=== PATIENT | female | born 1970 | race Hispanic/Latino ===

== ENCOUNTER 2018-04-05 12:37 | Emergency (ER) | payer OTHER ==
[2018-04-05 12:37] VITALS: BMI 18.8
[2018-04-05 13:04] VITALS: RESP 18; TEMP 98; O2SAT 98
--- NOTE | 2018-04-05 13:20 | ED PDOC ---
Arrival/HPI - General Chief Complaint: Eye Problem Time Seen by Provider: 04/05/18 13:05 Historian: Patient - History of Present Illness Narrative History of Present Illness (Text): 04/05/18 13:20 A 47 year old female, a current smoker, whose past medical history includes hypohydrosis, presents to the emergency department sent in by the game technician for a mildly dilated right pupil. Patient states on Saturday she noticed one p upil was more dilated than the other and went to her game technician who stated the symptom was not caused by her current medication, glycopyrrolate for her hypohydrosis. The patient's game technician urged her to go to the ER to be seen by a neuro manager lean. Patient reports no current eye pain and denies taking any eye drops. IOP 17, 18 done at game technician office. Patient denies any photophobia, eye pain, or any other complaints. Interline Clerk: Dr. Eldridge, PMD: Qi Palumbo Time/Duration: Other (4 days) Symptom Onset: Gradual Symptom Course: Unchanged Activities at Onset: Light Context: Other (Interline Clerk office) Past Medical History - Provider Review Nursing Documentation Reviewed: Yes - Past History Past History: No Previous - Infectious Disease Hx of Infectious Diseases: None - Tetanus Immunization Tetanus Immunization: Unknown - Reproductive Menopause: Yes Currently : No - Integumentary Other/Comment: Hypohydrosis - Psychiatric Hx Depression: No Hx Emotional Abuse: No Hx Physical Abuse: No Hx Substance Use: No - Suicidal Assessment Feels Threatened In Home Enviroment: No Family/Social History - Physician Review Nursing Documentation Reviewed: Yes Family/Social History: No Known Family HX Smoking Status: Current Some Days Smoker Hx Alcohol Use: Yes Frequency of alcohol use: Socially Hx Substance Use: No Hx Substance Use Treatment: No Allergies/Home Meds Allergies/Adverse Reactions: Allergies No Known Allergies Allergy (Verified 04/05/18 13:05) Home Medications: Home Meds Medication Instructions Recorded Confirmed Glycopyrrolate 2 mg PO DAILY 04/05/18 04/05/18 Review of Systems - Physician Review All systems were reviewed & negative as marked: Yes - Review of Systems Eyes: Vision Changes (blurry vision), Other (Right pupil is dilated). absent: Photophobia, Eye Pain Physical Exam Vital Signs Reviewed: Yes Vital Signs Temp Pulse Resp BP Pulse Ox 04/05/18 13:00 98 F 87 18 117/80 98 Temperature: Afebrile Blood Pressure: Normal Pulse: Regular Respiratory Rate: Normal Appearance: Positive for: Well-Appearing, Non-Toxic Pain Distress: None Mental Status: Positive for: Alert and Oriented X 3 - Systems Exam Head: Present: Atraumatic, Normocephalic Pupils: Present: Other (right sided dilated pupil; vision mildly decreased in right eye) Extroacular Muscles: Present: EOMI Conjunctiva: Present: Normal Respiratory/Chest: Present: Clear to Auscultation, Good Air Exchange. No: Respiratory Distress, Accessory Muscle Use Cardiovascular: Present: Regular Rate and Rhythm, Normal S1, S2. No: Murmurs Upper Extremity: Present: Normal Inspection. No: Cyanosis, Edema Lower Extremity: Present: Normal Inspection. No: Edema Neurological: Present: GCS=15, CN II-XII Intact, Speech Normal Skin: Present: Warm, Dry, Normal Color. No: Rashes Psychiatric: Present: Alert, Oriented x 3, Normal Insight, Normal Concentration Medical Decision Making ED Course and Treatment: 04/05/18 13:25 Impression: 47 year old female presenting to the emergency room sent in by the game technician for a mildly dilated right pupil. IOP 17, 18 done at game technician office. No eye pain. Mild R eye bluryness but can still read. No eye trauma or eye pain. No ptosis. R eye non reactive, but no cloudy cornea. EOMI fully inta ct. R eye is not down and out. No meningeal signs. Sent in by optometry for further evaluation. Plan: -- CTA Head & Neck -- Head CT -- CMP -- Magnesium -- CBC -- IV fluids -- urine test -- Reassess and disposition Prior Visits: Notes and results from previous visits were reviewed. Progress Notes: 04/05/18 13:[address] Dey (NEURO) who recommended a CTA, if negative patient can go home. 04/05/18 13:39 Appreciate consult w/ Dr. Seymour (opthamology) who reccomends CTA, if negative followup next week in his office. Pt in NAD, agreeable to plan. 04/05/18 15:47 labs unremarkable. CTH unremarkable Pending CTA. 02/09/19 16:42 CTA Unremarkable no change or worsening in vision. Normal neuro exam besides pupil clear for d/c home with optho and neuro. Pt agreeable to plan. - RAD Interpretation Narrative RAD Interpretations (Text): 04/05/18 15:44 Procedure: Head CT Dictator: Juan Jose Leos MD Impression: Normal CT of the head 04/05/18 16:50 Procedure: CTA of Head and Neck Dictator: Juan Jose Leos MD Impression: Unremarkable CT of Angiography of the brain. Air Cargo Agent: Radiologist - Scribe Statement The provider has reviewed the documentation as recorded by the Scribe Melissa Owens All medical record entries made by the Scribe were at my direction and personally dictated by me. I have reviewed the chart and agree that the record accurately reflects my personal performance of the history, physical exam, medical decision making, and the department course for this patient. I have also personally directed, reviewed, and agree with the discharge instructions and disposition. Disposition/Present on Arrival - Present on Arrival Any Indicators Present on Arrival: No History of DVT/PE: No History of Uncontrolled Diabetes: No Urinary Catheter: No History of Decub. Ulcer: No History Surgical Site Infection Following: None - Disposition Have Diagnosis and Disposition been Completed?: Yes Diagnosis: Pupillary abnormality of right eye, Blurry vision, right eye Disposition: HOME/ ROUTINE Disposition Time: 16:43 Condition: GOOD Discharge Instructions (ExitCare): How to Care for Your Eyes Additional Instructions: CALL DR. HOUSE OFFICE TO SET UP AN APPOINTMENT THIS WEEK. RETURN IF ANY NEW OR WORSENING SYMPTOMS CONSUELO MCINTOSH, thank you for letting us take care of you today. Your provider was Nikolas Oswald and you were treated for EYE PROBLEM. The emergency medical care you received today was directed at your acute symptoms. If you were prescribed any medication, please fill it and take as directed. It may take several days for your symptoms to resolve. Return to the Emergency Department if your symptoms worsen, do not improve, or if you have any other problems. Please contact your doctor or call one of the physicians/clinics you have been referred to that are listed on the Patient Visit Information form that is included in your discharge packet. Bring any paperwork you were given at discharge with you along with any medications you are taking to your follow up visit. Our treatment cannot replace ongoing medical care by a primary care provider outside of the emergency department. Thank you for allowing the [facility] team to be part of your care today. If you had an X-Ray or CT scan: A Radiologist will review the ED reading if any change in treatment is needed we will contact you. If you had a blood, urine, or wound culture: It will take several days for the results, if any change in treatment is needed we will contact you. If you had an STI test: It will take 48 hours for the results. Please call after 1 week if you have not heard back. Referrals: Qi Andrews MD [Primary Care Provider] - Follow up with primary Oni Dey MD [Staff Provider] - Follow up with primary Guido Seymour [Staff Provider] - Follow up with primary Forms: [employer] (Malay)
[2018-04-05] MEDS ORDERED: Sodium Chloride 0.9% 1,000 ML IV SCH (13:30)
[2018-04-05 13:46] LABS: BASO # 0.01 K/mm3 (0.0-2.0); BASO % 0.1 % (0.0-3.0); EOS # 0.1 (0.0-0.7); EOS % 0.4 % (1.5-5.0); HEMOGLOBIN 13.9 g/dL (12.0-16.0); LYMPH # 2.1 (1.2-3.4); LYMPH % 17.2 % (22.0-35.0); MEAN CELL VOLUME 91.6 fl (80.0-105.0); MEAN CORPUSCULAR HEMOGLOBIN 30.9 pg (25.0-35.0); MEAN CORPUSCULAR HGB CONC 33.7 g/dl (31.0-37.0); MONO # 0.5 (0.1-0.6); MONO % 4.1 % (1.0-6.0); RBC 4.5 10^6/uL (3.5-6.1); RED CELL DISTRIBUTION WIDTH 13.7 % (11.5-14.5); WHITE BLOOD COUNT 12.3 10^3/uL (4.5-11.0)
[2018-04-05 13:56] LABS: ALB/GLOB RATIO 1.4 (1.1-1.8); ALBUMIN 4.6 g/dL (3.0-4.8); ALT/SGPT 11 U/L (7-56); AST/SGOT 31 U/L (14-36); BLOOD UREA NITROGEN 13 mg/dL (7-21); CALCIUM 9.9 mg/dL (8.4-10.5); GFR NON-AFRICAN AMERICAN > 60
[2018-04-05] MEDS ORDERED: Iohexol 350 MG/100 ML VIAL ONE (15:24)
--- NOTE | 2018-04-05 15:42 | CT ---
Date of service: 04/05/2018 PROCEDURE: CT HEAD WITHOUT CONTRAST. HISTORY: R eye mid dilated. eomi normal COMPARISON: None available. TECHNIQUE: Axial computed tomography images were obtained through the head/brain without intravenous contrast. Radiation dose: Total exam DLP = 770.09 mGy-cm. This CT exam was performed using one or more of the following dose reduction techniques: Automated exposure control, adjustment of the mA and/or kV according to patient size, and/or use of iterative reconstruction technique. FINDINGS: HEMORRHAGE: No intracranial hemorrhage. BRAIN: No mass effect or edema. No atrophy or chronic microvascular ischemic changes. VENTRICLES: Unremarkable. No hydrocephalus. CALVARIUM: Unremarkable. PARANASAL SINUSES: Unremarkable as visualized. No significant inflammatory changes. MASTOID AIR CELLS: Unremarkable as visualized. No inflammatory changes. OTHER FINDINGS: None. IMPRESSION: Normal CT of the Head.
[2018-04-05 16:05] VITALS: BP 100/69; PULSE 62
--- NOTE | 2018-04-05 16:23 | CT ---
Date of service: 04/05/2018 PROCEDURE: CT Angiography of the neck with contrast HISTORY: R eye Mid dilated pupil, unreactive. EOMI intact. COMPARISON: None. TECHNIQUE: Contiguous axial images of the neck were obtained from the level of the skull-base to the superior mediastinum in the arteriographic phase of enhancement. Coronal and sagittal reformats or also generated. IV contrast dose: 100 cc of Omni 350 Radiation dose: Total exam DLP = 365.45 mGy-cm. This CT exam was performed using one or more of the following dose reduction techniques: Automated exposure control, adjustment of the mA and/or kV according to patient size, and/or use of iterative reconstruction technique. FINDINGS: RIGHT CAROTID ARTERIES: Common Carotid Artery: Normal. Carotid Bifurcation: Normal. Internal Carotid Artery:Normal. External Carotid Artery (proximal branches): Normal. LEFT CAROTID ARTERIES: Common Carotid Artery: Normal. Carotid Bifurcation: Normal. Internal Carotid Artery:Normal. External Carotid Artery (proximal branches): Normal. VERTEBRAL ARTERIES: Right Vertebral Artery: Normal. Left Vertebral Artery: Normal. OTHER FINDINGS: no aortic atherosclerotic calcification or mural plaque present. 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 PROCEDURE: CT Angiography of the Brain. HISTORY: R eye Mid dilated pupil, unreactive. EOMI intact. COMPARISON: None available. TECHNIQUE: CT angiography of the intracranial arteries was performed. Coronal and sagittal maximum intensity projection reformated images were generated. Radiation dose: Total exam DLP = 365.45 mGy-cm. This CT exam was performed using one or more of the following dose reduction techniques: Automated exposure control, adjustment of the mA and/or kV according to patient size, and/or use of iterative reconstruction technique. FINDINGS: INTERNAL CEREBRAL ARTERIES: Unremarkable. The skull base, petrous, cavernous and supraclinoid segments are bilaterally widely patent. ANTERIOR CEREBRAL ARTERIES: Unremarkable. A1 and A2 segments are widely patent. Smaller distal branches unremarkable, as visualized. MIDDLE CEREBRAL ARTERIES: Unremarkable. M1 and M2 segments are widely patent. Perisylvian branches grossly symmetric. POSTERIOR CIRCULATION: Basilar Artery: Unremarkable. Distal Vertebral Arteries: Unremarkable. Posterior Cerebral Arteries: Unremarkable. Posterior Inferior Cerebellar Arteries: Unremarkable. ANEURYSM/ VASCULAR MALFORMATIONS: None. OTHER FINDINGS: None. IMPRESSION: Unremarkable CT Angiography of the Brain.
== END 2018-04-05 16:54 | disposition home or self-care (01) ==
LOC: ED 12:37
DX: H21.561 Pupillary abnormality, right eye (principal); H53.8 Other visual disturbances
CPT/HCPCS: 70450; 70496; 70498; 80053; 81025; 83735; 85025; 99284; J7030; Q9967